=== PATIENT | male | born 1960 | race African-American/Black ===

== ENCOUNTER 2018-05-16 16:57 | Emergency (ER) | payer MEDICAID ==
[~2018-05-16] VITALS: Ht 172.7 cm; Wt 60.0 kg
[2018-05-16 22:00] VITALS: BP 155/87
== END 2018-05-17 10:37 | disposition left against medical advice (07) ==
LOC: ER 17:14
DX: Z53.21 Procedure and treatment not carried out due to patient leaving prior to being seen by health care provider (principal); R53.1 Weakness